=== PATIENT | female | born 1975 | race Caucasian/White ===

== ENCOUNTER 2016-11-23 15:48 | Inpatient (IN) | payer OTHER ==
[~2016-11-23] VITALS: Ht 170.2 cm; Wt 77.2 kg
--- NOTE | 2016-11-23 17:51 | NUR ---
PT AMBULATORY TO ROOM 12 FROM ED LOBBY C/O DIZZINESS WITH NAUSEA AND VOMITING SINCE 0400 THIS MORNING. PT REPORTS SHE WOKE UP AND FELT LIKE "THE ROOM WAS SPINNING." PT AA/O X4, CLEAR SPEECH, NO NEURO DEFICITS, RESPS EVEN AND UNLABORED, SKIN WARM/DRY TO TOUCH, NO S/S OF DISTRESS NOTED.
[2016-11-23 18:27] LABS: BASOPHIL % 0.5 % (0-2); PLATELET COUNT 287 x10^3mcL (130-400); RED CELL DISTRIBUTION WIDTH 12.7 % (11.5-14.5)
[2016-11-23 18:36] LABS: CALCIUM 9.3 mg/dL (8.5-10.1); CARBON DIOXIDE 30.4 mmol/L (21-32); CHLORIDE SERUM 101 mmol/L (98-107); CREATININE SERUM 0.7 mg/dL (0.6-1.0); GFR1 > 60 mL/min; GLUCOSE SERUM 102 mg/dL (74-106); POTASSIUM SERUM 3.8 mmol/L (3.5-5.1); SODIUM SERUM 138 mmol/L (136-145)
[2016-11-23 18:40] LABS: ALKALINE PHOSPHATASE 49 U/L (46-116); ALT/SGPT 43 U/L (14-59); AST/SGOT 20 U/L (15-37); BILIRUBIN TOTAL 0.3 mg/dL (0.20-1.00); CHOLESTEROL 167 mg/dL (<200); MAGNESIUM 1.7 mg/dL (1.8-2.4); TOTAL PROTEIN, SERUM 7.3 g/dL (6.4-8.2)
[2016-11-23 18:53] LABS: microscopic required? NO
--- NOTE | 2016-11-23 19:06 | NUR ---
PT MEDICATED PER MD ORDERS WITH ANTIVERT 50MG PO AND PHENERGAN 12.5MG IVP AND 1L NS BOLUS STARTED. PT SITTING UP IN ED GURNEY WITH FAMILY BESIDE, RESPS EVEN AND UNLABORED, NO S/S OF DISTRESS NOTED.
--- NOTE | 2016-11-23 19:10 | NUR ---
REPORT GIVEN TO BRIAN MARIE.
[2016-11-23 19:15] LABS: urine erythrocyte NEGATIVE (NEGATIVE)
--- NOTE | 2016-11-23 20:27 | NUR ---
PT AMBULAOTRY TO RESTROOM.
--- NOTE | 2016-11-23 20:42 | NUR ---
PT COMPLANING OF NAUSEA AFTER AMBULATING TO RESTROOM. DR TWILA ELLIS.
--- NOTE | 2016-11-23 21:03 | NUR ---
MEDICATED PT ORDERED, SEE EMAR.
--- NOTE | 2016-11-23 21:47 | NUR ---
PT REQUESTING ICE CHIPS.
--- NOTE | 2016-11-23 21:59 | NUR ---
PT STS "I THINK I'M FINE UNTIL I GO TO THE BATHROOM AND THEN I START TO FEEL DIZZY AND NAUSEOUS AGAIN." DR MATTSON AWARE OF SAME.
[2016-11-23] MEDS ORDERED: LOSARTAN POTASS25 M1 (22:36)
[2016-11-23] MEDS ORDERED: DIOHCT (22:36)
[2016-11-23] MEDS ORDERED: SYN15 (22:36)
--- NOTE | 2016-11-23 22:36 | NUR ---
PT RESTING IN POSITION OF COMFORT. PT IN AND OUT OF SLEEP. FAMILY REMAINS AT BEDSIDE.
--- NOTE | 2016-11-23 22:52 | NUR ---
REPORT GIVEN TO ANURAG MARIE TO RESUME CARE.
--- NOTE | 2016-11-23 23:25 | NUR ---
PT ARRIVED ON THE FLOOR FROM ER VIA [facility] ACCOMPANIED BY HER MOTHER AND THE NURSE. PT IS ADMITTED W/ C/O DIZZINESS AND NAUSEA WHICH STARTED AT 0400 AM. PT VERY SLEEPY ( GIVEN PHENERGAN IN ER) AND MOST INFO PROVIDED BY HER MOTHER. PT IS ORIENTED X4 W/ CLEAR SPEECH. NO FACIAL DROOP. LUNG SOUNDS CLEAR AND SATTING 99 % ON RA. ON TELE # 15 AND SHOWS SR. PT W/ NO C/O HEADACHE AT THIS TIME BUT W/ DIZZINESS WHEN SHE AMBULATES PER MOTHER. SHE HAS NO C/O PAIN AT THIS TIME. BOWEL SOUNDS ACTIVE. NO C/O N/V AT THIS TIME. NO EDEMA NOTED. W/ HL TO [facility]. PT INSTRUCTED ON THE USE OF CALL LIGHT.
[2016-11-23 23:46] VITALS: BP 122/82
--- NOTE | 2016-11-24 00:15 | NUR ---
UNABLE TO DO ORTHOSTATIC V/S AT THIS TIME PT IS VERY VERY SLEEPY. DR. CALIXTO MADE AWARE.
--- NOTE | 2016-11-24 01:00 | NUR ---
INFORMED DR. CALIXTO REGARDING MG=1.7 .
[2016-11-24 01:15] LABS: CHOLESTEROL/HDL RATIO 4.4
[2016-11-24 01:20] LABS: FREE T4 1.45 ng/dL (0.76-1.46); FREE THYROXINE INDEX 3.1 ug/dL (1.4-4.5); T4(THYROXINE) 8.8 ug/dL (4.7-13.3)
--- NOTE | 2016-11-24 02:10 | NUR ---
PT AWAKE. ORTHOSTATIC VITAL SIGNS DONE AT THIS TIME. PT DENIED HAVING DIZZINESS. PT ASKED FOR FOOD AFTERWARDS. ORDER FOR DIET GIVEN BY DR. CALIXTO.
[2016-11-24 02:16] LABS: T3 TOTAL 1.03 ng/mL
--- NOTE | 2016-11-24 02:16 | NUR ---
PT GIVEN APPLE JUICE AND PUDDING . NO C/O N/V AT THIS TIME.
--- NOTE | 2016-11-24 03:57 | NUR ---
PT ASLEEP SOUNDLY. SHE IS EASILY AROUSABLE. SHE ANSWERS APPROPRIATELY.
--- NOTE | 2016-11-24 05:15 | NUR ---
PT SLEPT AT LONG INTERVALS. SHE REMAINS ALERT AND ORIENTED X4. SHE HAD NO C/O HEADACHE. PT STATED THE MED GIVEN IN ER HELPED HER W/ THE DIZZINESS ( PT WAS MEDICATED W/ ANTIVERT IN ER). NO EPISODE OF N/V SINCE ARRIVAL TO THE FLOOR. IVF NS AT 100 CC/HR INFUSING VIA LTAC.
[2016-11-24] MEDS ORDERED: COZAAR100 MG PO (05:50)
[2016-11-24] MEDS ORDERED: HYDROCHLOROTH12.5 M3 PO (05:50)
[2016-11-24] MEDS ORDERED: SYNTHROID0.175 MG PO (05:51)
[2016-11-24 06:14] LABS: BASOPHIL % 0.5 % (0-2); PLATELET COUNT 251 x10^3mcL (130-400); RED CELL DISTRIBUTION WIDTH 12.7 % (11.5-14.5)
[2016-11-24 06:24] LABS: CALCIUM 8.6 mg/dL (8.5-10.1); CARBON DIOXIDE 27.2 mmol/L (21-32); CHLORIDE SERUM 107 mmol/L (98-107); CREATININE SERUM 0.6 mg/dL (0.6-1.0); GFR1 > 60 mL/min; GLUCOSE SERUM 85 mg/dL (74-106); MAGNESIUM 1.7 mg/dL (1.8-2.4); POTASSIUM SERUM 3.7 mmol/L (3.5-5.1); SODIUM SERUM 140 mmol/L (136-145)
--- NOTE | 2016-11-24 06:36 | NUR ---
PT REQUESTED FOR ANTIVERT PO. PT STATED SHE IS NOT FEELING DIZZY RIGHT NOW BUT WANTS TO PREVENT FEELING DIZZY. PT MEDICATED ORDERED.
[2016-11-24 07:01] VITALS: BP 115/77
--- NOTE | 2016-11-24 07:10 | NUR ---
RCD BEDSIDE REPORT FROM CYNTHIA OSBORN. PATIENT AWAKE, ALERT, AT BEDSIDE. NS 100 ML/HR TO LAC INFUSING W/O COMPLICATIONS. BED LOW, CALL LIGHT WITHIN REACH. WILL MONITOR.
--- NOTE | 2016-11-24 07:50 | NUR ---
A/OX4, DENIES HEADACHE OR CURRENT DIZZINESS. REPORTS MECLIZINE VERY HELPFUL FOR HER DIZZINESS. SPEECH CLEAR. TELE 15, NSR, RAGE IN 60S. NO COMPLAINT OF CHEST PAIN. PALPABLE PERIPHERAL PULSES, NO EDEMA. LUNGS CTA LIZ, REG RESPS, NO COMPLAINT OF SHORTNESS OF BREATH. ABD SOFT, NONTENDER, BOWEL SOUNDS ACTIVE. DENIES MIGUEL/VTG/GEORGE. LAST BM YESTERDAY, NORMAL. NO COMPLAINTS. SKIN INTACT. CALM AND COOPERATIVE WITH CARE. WILL MONITOR.
[2016-11-24 07:59] LABS: AMPHETAMINE QUAL UR NONE DETECTED (NEG <=1000)
--- NOTE | 2016-11-24 09:20 | NUR ---
MD ROUNDS WITH DR. SNOW, MEDICAL TEAM, G NURSE, ATTDG NURSE. PATIENT TO STAY TODAY FOR BP MONITORING AND MONITORING OF HER SYMPTOMS, POSSIBLE DISCHARGE TOMORROW IF ALL IS WELL.
[2016-11-24 10:12] VITALS: BP 114/80
--- NOTE | 2016-11-24 11:12 | NUR ---
PATIENT AWAKE ALERT, NO DISTRESS. NO NEEDS AT THIS TIME. WILL MONITOR.
--- NOTE | 2016-11-24 14:49 | NUR ---
PATIENT SITTING UP IN BED IN NO DISTRESS. STATES SHE STARTED TO FEEL A LITTLE DIZZY WITH REPOSITIONING DURING RENAL ULTRASOUND BUT SAYS SHE FEELS OKAY SITTING UP. ADVISED PATIENT TO LET NURSE KNOW IF SHE NEEDS MEDICATION FOR DIZZINESS, SHE AGREES TO CALL. LUNCH PROVIDED FROM PATIENT REFRIGERATOR. WILL MONITOR.
[2016-11-24 14:58] VITALS: BP 140/104
--- NOTE | 2016-11-24 16:00 | NUR ---
PATIENT SITTING ON SIDE OF BED A LITTLE WHILE AGO AND FEELING QUITE DIZZY AGAIN. STATES IT HAS BEEN WORSENING SINCE RENAL ULTRASOUND AND FEELS THAT THE POSITIONING SUPINE AND MOVING FROM SIDE TO SIDE MADE IT WORSE. SPOKE WITH DR. GOTTI WHO ORDERED DOSE OF ANTIVERT IT WAS ONLY AVAILABLE Q12H AND ADVISED HIM OF PATIENT'S COMPLAINT WITH POSITIONING WORSENING HER SYMPTOMS. ANTIVERT GIVEN PER OCT. WILL MONITOR.
--- NOTE | 2016-11-24 16:35 | NUR ---
P.T. NOTES PATIENT CLEARED PER RN FOR PT EVAL. FIRST ATTEMPT TO WORK WITH PATIENT, SHE WAS N/A DUE TO HAVING TESTS BEING DONE IN ROOM. 1 PVE RETURNED FOR PT EVAL IN PM WHEN PATIENT AVAILABLE TO PARTICIPATE. PLOF: IND W/ADLs, AMBU W/NO ASSISTIVE DEVICE. Pt ADMITTED D/T DIZZINESS AND VOMITING, HIGH BP. S: Pt PRESENTS AWAKE, ALERT AND AGREEABLE FOR PT EVAL. DENIES PAIN AT THIS TIME BUT DOES REPORT DIZZINESS THAT INCREASES W/CHANGING POSITIONS IN BED, STATES SHE IS UNABLE TO LIE SUPINE D/T DIZZINESS. RN AWARE. O: VS ASSESSMENT: BP 140/104, SP02 98%, HR 70BPM, RN AWARE. PLEASE SEE EVAL FOR DETAILS. Pt IS MOSTLY IND-SBA W/BED MOBILITY, CGA/MIN A FOR TRANSFERS AND GT WITHOUT ASSISTIVE DEVICE FOR 70 FT X 2. VC FOR UPRIGHT POSTURE AND SAFE DIRECTIONAL CHANGES WITHOUT AGGRAVATING DIZZY SYMPTOMS. Pt EDU ON SAFETY, FALL PREVENTION, SAFE EYE/HEAD MOVEMENTS DURING GAIT W/GOOD LEARNING EXPRESSED. Pt ASSISTED BTB W/HOB ELEVATED. ALL LINES INTACT, CALL LIGHT AND TRAY IN REACH. Pt W/MOTHER IN ROOM. BOTH ARE COOPERATIVE AND APPRECIATIVE OF PT CARE. A: Pt TOLERATED PT WELL. FALL RISK D/T DECLINE IN FUNCTION, ONSET OF DIZZY SYMPTOMS AND IMPAIRED DYNAMIC BALANCE. DEMO'S GOOD STATIC BALANCE. Pt C/O INCREASED DIZZINESS W/QUICK HEAD TURNS AND EYE MOVEMENTS, INCLUDING POSITIONING IN BED WELL MAKING DIRECTIONAL CHANGES DURING GT. WILL BENEFIT FROM PT SERVICES DURING ACUTE STAY WELL POSSIBLE OUTPATIENT PT FOR VESTIBULAR REHABILITATION IF DIZZY SYMPTOMS PERSIST. P: POC REVIEWED WITH [employer] OPERATIONS MANAGER. PLEASE SEE PATIENT ONCE DAILY, 6X/WK,1WEEK. EVAL 30' [id number]; [id number]; TUG 13 SEC
[2016-11-24 18:20] VITALS: BP 121/82
--- NOTE | 2016-11-24 19:16 | NUR ---
REPORT GIVEN TO CYNTHIA OSBORN. PATIENT REPORTS RELIEF FROM DIZZINESS EXCEPT WHEN SHE LEANS OVER. PATIENT SHOWERED AND FELT WELL DURING HER SHOWER. NS 100 ML/HR TO LAC INFUSING W/O COMPLICATIONS. BED LOW, CALL LIGHT WITHIN REACH. CARE ENDORSED.
--- NOTE | 2016-11-24 19:20 | NUR ---
RECEIVED PT IN BED AWAKE AND JUST TOOK A SHOWER. SHE IS ALERT,ORIENTED X4 W/ CLEAR SPEECH. NO FACIAL DROOP. PT DENIES HEADACHE AND STATED SHE HAS NO DIZZINESS AT THIS TIME. PER PT, MECLEZINE IS HELPING W/ HER DIZZINESS. SHE HAS NO C/O PAIN. NO SOB ON RA. W/ IVF NS AT 100 CC/HR VIA LTAC. CALL LIGHT W/IN REACH.
[2016-11-24 22:26] VITALS: BP 132/81
--- NOTE | 2016-11-24 22:30 | NUR ---
PT CALLED AND STATED THAT DIZZINESS IS COMING BACK ESPECIALLY WHEN SHE MOVES AROUND. ORTHOSTAIC V/S WAS JUST TAKEN AND RECORDED. PT ADVISED TO STAY IN BED AND TO CALL NURSE IF SHE NEEDS TO GET OOB.
--- NOTE | 2016-11-25 05:07 | NUR ---
PT MEDICATED W/ MECLEZINE 25 MG PO. PER PT SHE AMBULATED TO THE RESTROOM AND FELT OKAY . SHE WENT BACK TO BED AND STILL FEELING GOOD . AND WHEN SHE WAS IN BED SHE STARTED HAVING DIZZINESS W/ SUDDEN MOVENENTS.
--- NOTE | 2016-11-25 05:30 | NUR ---
PT RESTING COMFORTABLY IN BED. AT BEDSIDE VISITING. PT HAD NO C/O PAIN. SHE STILL HAD EPISODES OF DIZZINESS AND WAS MEDICATED W/ MECLEZINE X1 THIS SHIFT. PT EXPRESSED CONCERN WHY SHE IS STILL HAVING DIZZINESS AFTER THE EFFECT OF MECLEZINE WEARS OFF. ADVISED PT THAT THE DOCTORS WILL DO THEIR ROUNDS AND WILL BE ADVISED FURTHER REGARDING HER CONDITION.
[2016-11-25 05:42] VITALS: BP 112/71
[2016-11-25 06:12] LABS: CALCIUM 8.4 mg/dL (8.5-10.1); CARBON DIOXIDE 25.5 mmol/L (21-32); CHLORIDE SERUM 106 mmol/L (98-107); CREATININE SERUM 0.6 mg/dL (0.6-1.0); GFR1 > 60 mL/min; GLUCOSE SERUM 94 mg/dL (74-106); MAGNESIUM 1.8 mg/dL (1.8-2.4); PHOSPHOROUS 4.2 mg/dL (2.5-4.9); POTASSIUM SERUM 3.9 mmol/L (3.5-5.1); SODIUM SERUM 140 mmol/L (136-145)
[2016-11-25 06:19] LABS: BASOPHIL % 0.6 % (0-2); PLATELET COUNT 238 x10^3mcL (130-400); RED CELL DISTRIBUTION WIDTH 12.6 % (11.5-14.5)
--- NOTE | 2016-11-25 08:07 | NUR ---
DR. JAUREGUI AND RESIDENTS MAKING ROUNDS, PLAN OF CARE DISCUSSED.
--- NOTE | 2016-11-25 08:52 | NUR ---
PT RECEIVED DURING CHANGE OF SHIFT, A/OX4, C/O DIZZINESS, NO TELE, DENIES CHEST PAIN, PULSES PRESENT BUE AND BLE, NO EDEMA NOTED, LUNGS CTA ON RA, BOWEL SOUNDS ACTIVE, PT AMBULATORY, ABLE TO VOID, SKIN WARM DRY INTACT, DENIES PAIN, IV TO LAC INFUSING NS AT 100ML/HR, CALM AND COOPERATIVE, WILL CONTINUE TO MONITOR.
[2016-11-25] MEDS ORDERED: APAP/HYDROCODON1 T13 PO (09:04)
[2016-11-25] MEDS ORDERED: MECLIZINE HYDRO25 M1 PO (09:05)
[2016-11-25] MEDS ORDERED: ZOF4 PO (09:06)
[2016-11-25 09:07] VITALS: BP 122/80
--- NOTE | 2016-11-25 09:38 | NUR ---
PT RECEIVED MED EDUCATION, DENIES SOB, DENIES PAIN, DR. GOTTI AT BEDSIDE TO DO TEACHING ON EPLY MANUEVERS FOR BPPV, CALL LIGHT WITHIN REACH, WILL CONTINUE TO MONITOR.
[2016-11-25 10:15] VITALS: BP 122/80
--- NOTE | 2016-11-25 10:18 | NUR ---
PT C/O NAUSEA, DENIES SOB, DENIES PAIN, CALL LIGHT WITHIN REACH, VISITOR AT BEDSIDE, WILL CONTINUE TO MONITOR.
--- NOTE | 2016-11-25 10:46 | NUR ---
PT RECEIVED DISCHARGE INSTRUCTIONS, VERBALIZED UNDERSTANDING, ALL QUESTIONS ANSWERED SCRIPTS GIVEN, NO TELE, PT CALLING FAMILY FOR PICKUP, WILL CONTINUE TO MONITOR.
--- NOTE | 2016-11-25 11:13 | NUR ---
IV DC'D, CATHETER INTACT, PT WHEELED DOWN BY RN.
== END 2016-11-25 11:05 | disposition home or self-care (01) | DRG 45 ==
LOC: ED 15:48 → DU 22:24 → MU 11-24 12:58
PROVIDERS: Emergency Medicine; ADMIT Family Medicine
DX: I63.9 Cerebral infarction, unspecified (principal); I67.4 Hypertensive encephalopathy; E83.42 Hypomagnesemia; E03.9 Hypothyroidism, unspecified; E78.1 Pure hyperglyceridemia; Z68.26 Body mass index [BMI] 26.0-26.9, adult; G90.9 Disorder of the autonomic nervous system, unspecified; I10 Essential (primary) hypertension
CPT/HCPCS: 80307; 82962; 83880; 84439; C9113; J2405; J2550; J7030; J8597; Q0092

== ENCOUNTER 2017-08-20 04:53 | Emergency (ER) | payer OTHER ==
[~2017-08-20] VITALS: Ht 167.6 cm; Wt 79.4 kg
[~2017-08-20 04:53] MED LIST: APAP/HYDROCODON1 T13 PO; COZAAR100 MG PO; DIOHCT; HYDROCHLOROTH12.5 M3 PO; LOSARTAN POTASS25 M1; MECLIZINE HYDRO25 M1 PO; SYN15; SYNTHROID0.175 MG PO; ZOF4 PO
[2017-08-20 05:06] VITALS: Ht 167.6 cm; Wt 79.4 kg
[2017-08-20 06:41] VITALS: BP 120/67
== END 2017-08-20 07:31 | disposition home or self-care (01) ==
LOC: ED 04:53
DX: J20.8 Acute bronchitis due to other specified organisms (principal); I10 Essential (primary) hypertension; E03.9 Hypothyroidism, unspecified
CPT/HCPCS: 87804; Q0092

== ENCOUNTER 2018-09-16 07:02 | Emergency (ER) | payer OTHER ==
[2018-09-16 07:11] VITALS: Ht 167.6 cm
[2018-09-16 07:57] LABS: BASOPHIL % 0.8 % (0-2); PLATELET COUNT 336 x10^3mcL (130-400); RED CELL DISTRIBUTION WIDTH 13.5 % (11.5-14.5)
[2018-09-16 08:07] LABS: CALCIUM 8.6 mg/dL (8.5-10.1); CARBON DIOXIDE 25.1 mmol/L (21-32); CHLORIDE SERUM 102 mmol/L (98-107); CREATININE SERUM 0.8 mg/dL (0.6-1.0); GFR1 > 60 mL/min; GLUCOSE SERUM 96 mg/dL (74-106); POTASSIUM SERUM 3.9 mmol/L (3.5-5.1); SODIUM SERUM 136 mmol/L (136-145)
[2018-09-16 08:12] LABS: ALBUMIN 3.7 g/dL (3.4-5.0); ALKALINE PHOSPHATASE 43 U/L (46-116); ALT/SGPT 53 U/L (14-59); AST/SGOT 24 U/L (15-37); BILIRUBIN TOTAL 0.3 mg/dL (0.20-1.00); TOTAL PROTEIN, SERUM 7.1 g/dL (6.4-8.2)
[2018-09-16 10:31] VITALS: BP 149/82
== END 2018-09-16 10:31 | disposition home or self-care (01) ==
LOC: ED 07:02
PROVIDERS: Emergency Medicine
DX: R07.89 Other chest pain (principal); R05 Cough; I10 Essential (primary) hypertension; E03.9 Hypothyroidism, unspecified; R20.2 Paresthesia of skin
CPT/HCPCS: 36415; 85378

== ENCOUNTER 2019-04-05 19:34 | Emergency (ER) | payer OTHER ==
[~2019-04-05] VITALS: Ht 170.2 cm; Wt 82.6 kg
[2019-04-05 19:46] VITALS: Ht 170.2 cm; Wt 82.6 kg
[2019-04-05 20:56] LABS: PLATELET COUNT 359 x10^3mcL (130-400); RED CELL DISTRIBUTION WIDTH 13.2 % (11.5-14.5)
[2019-04-05 21:06] LABS: CALCIUM 9.3 mg/dL (8.5-10.1); CARBON DIOXIDE 26.8 mmol/L (21-32); CHLORIDE SERUM 101 mmol/L (98-107); CREATININE SERUM 0.9 mg/dL (0.6-1.0); GFR1 > 60 mL/min; GLUCOSE SERUM 106 mg/dL (74-106); POTASSIUM SERUM 3.7 mmol/L (3.5-5.1); SODIUM SERUM 138 mmol/L (136-145)
[2019-04-05 21:10] LABS: ALKALINE PHOSPHATASE 63 U/L (46-116); ALT/SGPT 137 U/L (14-59); AMYLASE 74 U/L (25-115); AST/SGOT 82 U/L (15-37); BILIRUBIN TOTAL 0.32 mg/dL (0.20-1.00); LIPASE 270 IU/L (73-393); TOTAL PROTEIN, SERUM 7.6 g/dL (6.4-8.2)
[2019-04-06 06:10] VITALS: BP 165/112
== END 2019-04-06 06:10 | disposition home or self-care (01) ==
LOC: ED 19:34
PROVIDERS: Emergency Medicine
DX: R10.84 Generalized abdominal pain (principal); M54.5 Low back pain; I10 Essential (primary) hypertension; E03.9 Hypothyroidism, unspecified; R14.0 Abdominal distension (gaseous); Z98.82 Breast implant status
CPT/HCPCS: J1885; J7030; Q0092

== ENCOUNTER 2019-10-20 08:21 | Day surgery (SDC) | payer OTHER ==
[~2019-10-20] VITALS: Ht 167.6 cm; Wt 72.6 kg
[2019-10-20 09:10] VITALS: BP 127/87
[2019-10-20 12:37] VITALS: BP 128/75
== END 2019-10-20 11:30 | disposition home or self-care (01) ==
LOC: GI 08:21 → OR 11:00 → GI 11:30 → OR 12:00
DX: K21.9 Gastro-esophageal reflux disease without esophagitis (principal); K30 Functional dyspepsia; I10 Essential (primary) hypertension; Z79.899 Other long term (current) drug therapy
CPT/HCPCS: 43235; 87081; J1200; J1610; J2250; J2310; J3010; J3490

== ENCOUNTER 2020-04-04 16:57 | Inpatient (IN) | payer OTHER ==
[~2020-04-04] VITALS: Ht 167.6 cm; Wt 81.6 kg
[2020-04-04 17:35] VITALS: Ht 167.6 cm; Wt 81.6 kg
[2020-04-04 18:25] LABS: microscopic required? NO
[2020-04-04 18:30] LABS: BASOPHIL % 0.5 % (0-2); PLATELET COUNT 336 x10^3mcL (130-400); RED CELL DISTRIBUTION WIDTH 12.9 % (11.5-14.5)
[2020-04-04 18:33] LABS: urine erythrocyte NEGATIVE (NEGATIVE)
[2020-04-04 18:38] LABS: CALCIUM 9.4 mg/dL (8.5-10.1); CARBON DIOXIDE 28.8 mmol/L (21-32); CHLORIDE SERUM 97 mmol/L (98-107); CREATININE SERUM 0.8 mg/dL (0.6-1.0); GFR1 > 60 mL/min; GLUCOSE SERUM 107 mg/dL (74-106); POTASSIUM SERUM 3.8 mmol/L (3.5-5.1); SODIUM SERUM 137 mmol/L (136-145)
[2020-04-04 18:42] LABS: ALBUMIN 3.9 g/dL (3.4-5.0); ALKALINE PHOSPHATASE 63 U/L (46-116); ALT/SGPT 122 U/L (14-59); AST/SGOT 55 U/L (15-37); BILIRUBIN TOTAL 1.2 mg/dL (0.20-1.00); LIPASE 144 IU/L (73-393); TOTAL PROTEIN, SERUM 8.1 g/dL (6.4-8.2)
[2020-04-05 01:16] VITALS: BP 149/92
[2020-04-05 02:31] LABS: CHOLESTEROL/HDL RATIO 3.7
[2020-04-05 02:35] LABS: T3 TOTAL 0.79 ng/mL
[2020-04-05 02:43] LABS: FREE T4 1.25 ng/dL (0.76-1.46); FREE THYROXINE INDEX 3.1 ug/dL (1.4-4.5); T4(THYROXINE) 9.4 ug/dL (4.7-13.3)
[2020-04-05 05:00] VITALS: BP 109/62
[2020-04-05 06:57] LABS: BASOPHIL % 0.3 % (0-2); PLATELET COUNT 315 x10^3mcL (130-400); RED CELL DISTRIBUTION WIDTH 12.4 % (11.5-14.5)
[2020-04-05 06:58] LABS: CALCIUM 8.5 mg/dL (8.5-10.1); CARBON DIOXIDE 31.5 mmol/L (21-32); CHLORIDE SERUM 100 mmol/L (98-107); CREATININE SERUM 0.8 mg/dL (0.6-1.0); GFR1 > 60 mL/min; GLUCOSE SERUM 108 mg/dL (74-106); MAGNESIUM 1.8 mg/dL (1.8-2.4); POTASSIUM SERUM 3.4 mmol/L (3.5-5.1); SODIUM SERUM 135 mmol/L (136-145)
[2020-04-05 08:18] VITALS: BP 122/82
[2020-04-05] MEDS ORDERED: LEVAQUIN500 M1 PO (11:52)
[2020-04-05] MEDS ORDERED: FLA500 PO (11:54)
[2020-04-05 12:08] VITALS: BP 113/69
[2020-04-05 12:10] VITALS: BP 113/69
[2020-04-05 20:44] LABS: AMPHETAMINE QUAL UR NONE DETECTED (See below)
== END 2020-04-05 13:05 | disposition home or self-care (01) | DRG 720 ==
LOC: ED 16:57 → MU 23:06 → DU 04-05 01:01
PROVIDERS: Student in an Organized Health Care Education/Training Program; ADMIT Family Medicine; ATTEND Family Medicine
DX: A41.9 Sepsis, unspecified organism (principal); K57.32 Diverticulitis of large intestine without perforation or abscess without bleeding; E03.9 Hypothyroidism, unspecified; I10 Essential (primary) hypertension; R74.0 Nonspecific elevation of levels of transaminase and lactic acid dehydrogenase [LDH]; Z83.3 Family history of diabetes mellitus; Z79.899 Other long term (current) drug therapy
CPT/HCPCS: 84439; G0378; J0696; J2270; J2405; J3490; J7030; Q0092; Q9967